=== PATIENT | female | born 1965 | race Hispanic/Latino ===

== ENCOUNTER 2017-08-11 08:34 | Emergency (ER) | payer OTHER ==
[~2017-08-11] VITALS: Ht 162.6 cm; Wt 90.7 kg
--- OUTSIDE RECORDS SUMMARY | 2017-08-11 08:37 | XMS REPORT | Clinical Summary ---
Author Author KRISH [facility] Address Unknown Phone Unavailable Care Team Providers Care Agricultural Research Technician Name Role Phone PCP Unavailable Allergies Active Allergy Reactions Severity Noted Date Comments Milk Containing Products Rash High 02/03/2016 Dairy products Current Medications Prescription Sig. Disp. Refills Start End Date Status Date pravastatin (PRAVACHOL) Take 20 mg by mouth Active 20 MG tablet nightly . amLODIPine (NORVASC) 5 MG Take 5 mg by mouth daily. Active tablet insulin NPH 100 unit/mL Inject 25 Units Active (3 mL) InPnIndications: subcutaneously every type 2 diabetes mellitus morning. insulin NPH 100 unit/mL Inject 30 Units Active (3 mL) InPnIndications: subcutaneously every type 2 diabetes mellitus evening. Active Problems Problem Noted Date KATHY (acute kidney injury) (HCC) 02/09/2016 Acute renal failure with other specified pathological lesion in kidney 02/07 ([facility]) Chest pain, unspecified 02/03/2016 Social History Tobacco Use Types Packs/Day Years Used Date Former Smoker Alcohol Use Drinks/Week oz/Week Comments No Sex Assigned at Date Recorded Not on file Last Filed Vital Signs Not on file Plan of Treatment Not on file Results Not on fileafter 08/10/2016
--- OUTSIDE RECORDS SUMMARY | 2017-08-11 08:53 | XMS REPORT | Clinical Summary ---
Author Author KRISH [facility] Address Unknown Phone Unavailable Care Team Providers Care Grease Maker Head Name Role Phone PCP Unavailable Allergies Active [...] other specified pathological lesion in kidney 02/07 ([facility]) Chest pain, unspecified 02/03/2016 Social History Tobacco Use Types Packs/Day Years Used Date Former Smoker Alcohol Use Drinks/Week oz/Week Comments No Sex Assigned at Date Recorded Not on file Last Filed Vital Signs Not on file Plan of Treatment Not on file Results Not on fileafter 08/10/2016
--- NOTE | 2017-08-11 09:41 | Diagnostic Imaging Report ---
EXAMINATION: CHEST 2 VIEWS INDICATION: \S\SOB, FEVER \[id number] \S\0910 \S.br\ COMPARISON: None FINDINGS: PA and lateral views TUBES and LINES: None. LUNGS: Limited by low lung volumes and body habitus. There is no evidence of pneumonia or pulmonary edema. PLEURA: No pleural effusion or pneumothorax. HEART AND MEDIASTINUM: The cardiomediastinal silhouette is unremarkable. BONES AND SOFT TISSUES: No acute osseous lesion. Soft tissues are unremarkable. UPPER ABDOMEN: No free air under the diaphragm. IMPRESSION: No acute thoracic abnormality. Signed by: Dr. Bernardo Logan MD on 08/11/2017 9:37 AM
[2017-08-11 10:04] LABS: BASOPHILS % 0.5 % (0.0-1.0); EOSINOPHILS % 0.5 % (0.0-6.0); HEMATOCRIT 41.4 % (34.2-44.1); HEMOGLOBIN 13.7 g/dL (12.0-16.0); LYMPHOCYTES # (AUTO) 1.2 (1.0-3.2); LYMPHOCYTES % 16.4 % (18.0-39.1); MEAN CORPUSCULAR HEMOGLOBIN 28.5 pg (28-32); MEAN CORPUSCULAR HGB CONC 33.1 g/dL (31-35); MEAN CORPUSCULAR VOLUME 86.1 fL (81-99); MONOCYTES # (AUTO) 0.9 (0.2-0.8); MONOCYTES % 11.5 % (4.4-11.3); NEUTROPHILS # (AUTO) 5.3 (2.1-6.9); NEUTROPHILS % 70.7 % (38.7-80.0); PLATELET COUNT 234 x10e3/uL (140-360); RED BLOOD COUNT 4.81 x10e6/uL (3.6-5.1); RED CELL DISTRIBUTION WIDTH 13.3 % (11.7-14.4)
[2017-08-11 10:19] LABS: INR 1.11; PROTHROMBIN TIME 13.5 seconds (11.9-14.5)
[2017-08-11 10:20] LABS: PARTIAL THROMBOPLASTIN TIME 34.3 seconds (23.8-35.5)
[2017-08-11 10:26] LABS: ALANINE AMINOTRANSFERASE 25 IU/L (0-55); ALBUMIN 3.9 g/dL (3.5-5.0); ALKALINE PHOSPHATASE 84 IU/L (40-150); ANION GAP 10.4 mmol/L (8-16); BLOOD UREA NITROGEN 9 mg/dL (7-26); BUN/CREATININE RATIO 13 (6-25); CALCIUM 9.1 mg/dL (8.4-10.2); CARBON DIOXIDE 28 mmol/L (22-29); CHLORIDE 102 mmol/L (98-107); CREATINE KINASE 31 IU/L (29-168); EST GLOMERULAR FILTRATION RATE > 60 ML/MIN (60-); GLUCOSE 136 mg/dL (74-118); POTASSIUM 3.4 mmol/L (3.5-5.1); SODIUM 137 mmol/L (136-145)
[2017-08-11 10:38] LABS: CLARITY,URINE CLEAR (CLEAR); COLOR,URINE YELLOW (YELLOW); LEUKOCYTE ESTERASE ,URINE NEGATIVE (NEGATIVE); NITRITE,URINE NEGATIVE (NEGATIVE); PROTEIN,URINE DIPSTICK TRACE (NEGATIVE)
[2017-08-11 10:39] LABS: BILIRUBIN,URINE NEGATIVE (NEGATIVE); KETONES,URINE NEGATIVE (NEGATIVE); URINE UROBILINOGEN 0.2 mg/dL (0.2 - 1)
[2017-08-11] MEDS ORDERED: IOPAMIDOL 370 MG/ML 200 ML INFUS..BTL INJ ONE (11:25)
[2017-08-11] MEDS ORDERED: SODIUM CHLORIDE 0.9% 50ML 50 ML ONE (11:25)
--- NOTE | 2017-08-11 12:24 | Diagnostic Imaging Report ---
EXAM: CT Chest WITH contrast 08/11/2017 10:53 AM INDICATION: \S\PE PROTOCOL \[id number] \S\1130 \S\N COMPARISON: Chest x-ray of the same date TECHNIQUE: Chest was scanned utilizing a multidetector helical scanner from the lung apex through the level of the adrenal glands without administration of IV contrast. Coronal and sagittal reformations were obtained. Pulmonary embolism protocol was performed. IV CONTRAST: 100 mL of Isovue-370 COMPLICATIONS: None RADIATION DOSE: Total DLP: 463.72 mGy*cm Estimated effective dose: (DLP x 0.014 x size factor) mSv CTDIvol has been reviewed. It is below the limits set by the Radiation Protocol Committee (RPC). FINDINGS: LINES/ TUBES: None. LUNGS AND AIRWAYS: No filling defects within pulmonary arteries up to the segmental levels. Mild posterior left base opacification (series 3, image 68). Airways are normal. PLEURA: The pleural spaces are clear. HEART AND MEDIASTINUM: The visualized thyroid gland is normal. No mediastinal, hilar or axillary lymphadenopathy. The heart is normal in size.. There is no pericardial effusion. UPPER ABDOMEN: Cholecystectomy. BONES: The visualized bony thorax is within normal limits. SOFT TISSUES: Unremarkable. IMPRESSION: No evidence of pulmonary embolism. Mild posterior left base opacification may represent developing pneumonia in the appropriate clinical setting. Signed by: Dr. Bernardo Logan MD on 08/11/2017 12:21 PM
[2017-08-11] MEDS ORDERED: CEFTRIAXONE SOD 1 GM VIAL IV ONE (12:45)
[2017-08-11 13:07] VITALS: BP 190/100
== END 2017-08-11 13:25 | disposition home or self-care (01) ==
LOC: ER 08:51
DX: R53.1 Weakness (principal); J15.9 Unspecified bacterial pneumonia; I10 Essential (primary) hypertension; E11.9 Type 2 diabetes mellitus without complications
CPT/HCPCS: 36415; 71046; 71260; 80053; 81001; 82550; 82553; 83880; 84484; 85025; 85379; 85610; 85730; 87400; 93005; 99284; J0696; Q9967

== ENCOUNTER 2019-12-21 22:35 | Emergency (ER) | payer OTHER ==
[~2019-12-21] VITALS: Ht 162.6 cm; Wt 90.7 kg
[2019-12-21] MEDS ORDERED: SODIUM CHLORIDE 0.9% 1000ML 1,000 ML IV STA (23:09)
[2019-12-21] MEDS ORDERED: ONDANSETRON HCL INJ 2MG/ML 2ML 2 MG/ML VIAL IV STA (23:10)
[2019-12-21] MEDS ORDERED: ACETAMINOPHEN 325 MG TAB PO ONE (23:15)
--- NOTE | 2019-12-21 23:18 | Emergency Department Note ---
History of Present Illnes History of Present Illness Chief Complaint: COVID PUI History of Present Illness This is a 54 year old female arrives to the ED requesting IV fluids. Patient states she was sent to the ER by her PCP for having Covid 19 symptoms causing dehydration. Patient states she wants IV fluids and admission. 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 Historian: Patient Arrival Mode: Car Radiation: Reports non-radiation Severity: mild Duration (how long): day(s) Timing of current episode: constant Chronicity: new Past Medical/Family History Physician Review I have reviewed the patient's past medical and family history. Any updates have been documented here. Past Medical History Recent Fever: Yes Clinical Suspicion of Infectio: Yes New/Unexplained Change in Ment: No Past Medical History: Hypertension, Diabetes, Hyperlipedemia Past Surgical History: Cholecysctectomy, Hysterectomy Other Surgery: PARTIAL HYSTERECTOMY Social History Physically hurt or threatened: No Other Last Tetanus: <5yrs Review of Systems Review of Systems Constitutional: Reports no symptoms, Reports fever, Reports malaise, Reports weakness EENTM: Reports no symptoms Cardiovascular: Reports no symptoms Respiratory: Reports as per HPI, Reports cough Gastrointestinal: Reports no symptoms Genitourinary: Reports no symptoms Musculoskeletal: Reports no symptoms Integumentary: Reports no symptoms Neurological: Reports no symptoms Psychological: Reports no symptoms Endocrine: Reports no symptoms Hematological/Lymphatic: Reports no symptoms Physical Exam Related Data Allergies: Uncoded Allergies: DAIRY (Allergy, Unknown, 08/11/17) Triage Vital Signs Vital Signs Date Time Temp Pulse Resp B/P (MAP) Pulse Ox O2 Delivery O2 Flow Rate FiO2 12/21/19 22:45 100.1 98 20 96/77 97 Room Air Physical Exam CONSTITUTIONAL Constitutional: Present well-developed, Present well-nourished HENT HENT: Present normocephalic, Present atraumatic, Present oropharynx clear/moist, Present nose normal HENT L/R: Present left ext ear normal, Present right ext ear normal EYES Eyes: Reports PERRL, Reports conjunctivae normal NECK Neck: Present ROM normal PULMONARY Pulmonary: Present effort normal, Present breath sounds normal CARDIOVASCULAR Cardiovascular: Present regular rhythm, Present heart sounds normal, Present capillary refill normal, Present normal rate GASTROINTESTINAL Abdominal: Present soft, Present nontender, Present bowel sounds normal GENITOURINARY Genitourinary: Present exam deferred SKIN Skin: Present warm, Present dry MUSCULOSKELETAL Musculoskeletal: Present ROM normal NEUROLOGICAL Neurological: Present alert, Present oriented x 3, Present no gross motor or sensory deficits PSYCHOLOGICAL Psychological: Present mood/affect normal, Present judgement normal Assessment & Plan Medical Decision Making MDM 54-year-old well-appearing female likely Covid positive given her symptoms arrives the ED requesting IV fluids. Patient was informed that there is no indication for IV fluids but she insisted. Patient given a liter, encouraged oral hydration. Patient discharged home on Zofran, Z-Rodo and outpatient follow- up. Assessment & Plan Final Impression: (1) COVID-19 Depart Disposition: HOME, SELF-CARE Last Vital Signs Date Time Temp Pulse Resp B/P (MAP) Pulse Ox O2 Delivery O2 Flow Rate FiO2 12/21/19 22:45 100.1 98 20 96/77 97 Room Air SONIA SMALL DO Dec 21, 2019 23:18
--- OUTSIDE RECORDS SUMMARY | 2019-12-22 00:12 | XMS REPORT | Clinical Summary ---
Author Author KRISH [facility] Address Unknown Phone Unavailable Care Team Providers Care Multimedia Engineer Name Role Phone PCP Unavailable Allergies Comments Active Allergy Reactions Severity Noted Date KATHY KATHY Amoxicillin 02/13/2016 KATHY KATHY Clarithromycin 02/13/2016 Dairy products Milk Containing Products Rash High 02/02 Medications End Date Status Medication Sig Dispensed Refills Start Date Active pravastatin (PRAVACHOL) Take 20 mg by 0 20 MG tablet mouth nightly . Active amLODIPine (NORVASC) 5 MG Take 5 mg by 0 tablet mouth daily. Active insulin NPH 100 unit/mL Inject 25 0 (3 mL) InPnIndications: Units type 2 diabetes mellitus subcutaneousl y every morning. Active insulin NPH 100 unit/mL Inject 30 0 (3 mL) InPnIndications: Units type 2 diabetes mellitus subcutaneousl y every evening. Active losartan-hydroCHLOROthiaz Take 1 tablet 0 06/13 gege (HYZAAR) 50-12.5 mg by mouth. 7 per tablet Active Problems Problem Noted Date Severe right groin pain 08/06/2018 Type 2 diabetes mellitus with complication, unspecifi ed whether group home 08/06/2018 insulin use Essential hypertension 08/06/2018 KATHY (acute kidney injury) 02/09/2016 Acute renal failure with other specified pathological lesion in kidney 02/08/2016 Chest pain, unspecified 02/03/2016 Social History Date Tobacco Use Types Packs/Day Years Used Former Smoker Alcohol Use Drinks/Week oz/Week Comments No Sex Assigned at Date Recorded Not on file Industry Job Start Date Occupation Not on file Not on file Not on file Travel End Travel History Travel Start No recent travel history available. Last Filed Vital Signs Not on file Plan of Treatment Not on file Results Not on fileafter 12/21/2018 Insurance Payer Benefit Subscriber ID Type Phone Address Plan / Group [employer] - [place] [employer] xxxxxxxxxxx HMO/POS HMO/POS OPEN ACCESS [employer] - [place] xxxxxxxxxxxx CARE MEDICAL RESOURCES CHOICE POS [phone] Advance Directives For more information, please contact: [address] [address] Date Inactivated Comments Code Status Date Activated 02/10/2016 5:03 PM Full Code 02/08/2016 8:55 PM This code status was determined by: Patient 02/03/2016 8:28 PM Full Code 02/03/2016 10:18 AM This code status was determined by: Patient
--- OUTSIDE RECORDS SUMMARY | 2019-12-22 00:13 | XMS REPORT | Continuity of Care Document ---
Author Author [facility] t Organization [facility] Address [facility] [place] [address] Phone Unavailable Care Team Providers Care Technician [employer] Name Role Phone ANGELICA RAINES PCP LUNA HARDING Attphys Unavailable Bill BEAN Attphys Unavailable Payers Payer Name Policy Type Policy Number Effective Date Expiration Date Karoline Cohen o [id number] 2011 00:00:00 [facility] Problems Condition Name Condition Details Condition Category Status Onset Date Resolution Date Last Treatment Date Treating Clinician Comments Source Severe right groin pain Severe right groin pain Disease Active 2018-08-06 00:00:00 [facility] Type 2 diabetes mellitus with complicati on, unspecified whether halfway insulin use Type 2 diabetes mellitus with complicati on, unspecified whether halfway insulin use Disease Active 2018-08-06 00:00:00 [facility] Essential hypertension Essential hypertension Disease Active 2018-08-06 00:00:00 [facility] KATHY (acute kidney injury) KATHY (acute kidney injury) Disease Ac tive 2016-02-09 00:00:00 [facility] Acute renal failure with other specified pathological lesion in kidney Acute renal failure with other specified pathological lesion in kidney Disease Active 2016-02-08 00:00:00 [facility] Chest pain, unspecified Chest pain, unspecified Disease Active 2016-02-03 00:00:00 [facility] Allergies, Adverse Reactions, Alerts Allergy Name Allergy Type Status Severity Reaction(s) Onset Date Inacti ve Date Treating Clinician Comments Source DAIRY Allergy to Substance Active 2017-08-11 00:00:00 [facility] Amoxicillin Propensity to adverse reactions Active 2015 00:00:00 [facility] Clarithromycin Propensity to adverse reactions Active 2 00:00:00 [facility] Milk Containing Products Drug Allergy Active Rash 2016-02-03 00:00:00 Dairy products [facility] Social History Social Habit Start Date Stop Date Quantity Comments Source Sex Assigned At [facility] Smoking Status Start Date Stop Date Source Former smoker 2018-08-06 00:00:00 2018-08-06 00:00:00 [facility] Medications Ordered Medication Name Filled Medication Name Start Date Stop Da te Current Medication? Ordering Clinician Indication Dosage Frequency Signature (SIG) Comments Components Source losartan-hydroCHLOROthiazide (HYZAAR) 50-12.5 mg per tablet 2016-06-27 00:00:00 Yes 1{tbl} Take 1 tablet by mouth. [facility] pravastatin (PRAVACHOL) 20 MG tablet 2016-02-08 20:49:07 Ye s 20mg QD Take 20 mg by mouth nightly . [facility] amLODIPine (NORVASC) 5 MG tablet 2016-02-03 08:40:46 Yes 5mg QD Take 5 mg by mouth daily. [facility] insulin NPH 100 unit/mL (3 mL) [facility] 2016-02-03 08:40:46 Yes type 2 diabetes mellitus 25U QD Inject 25 Units subcutaneously every mor jaylon. [facility] insulin NPH 100 unit/mL (3 mL) [facility] 2016-02-03 08:40:46 Yes type 2 diabetes mellitus 30U QD Inject 30 Units subcutaneously every myra jaylon. [facility] Procedures Procedure Date / Time Performed Performing Clinician [facility] e X-ray of chest, two views 2017-08-11 00:00:00 STELLA BEAN [facility] Computed tomography of chest with contrast 2017-08-11 00:00:00 H STELLA FARRELL [facility] Encounters Start Date/Time End Date/Time Encounter Type Admission Type Attendi ng Clinicians Care Facility Care Department Encounter ID Source 2017-08-11 08:51:00 2017-08-11 13:25:00 Departed Emergency Room ER STELLA BEAN [facility] [id number] [facility] Results Test Description Test Time Test Comments Results Result Comments Source CT, ABDOMEN 2018-08-06 16:00:00 FINAL REPORT TECHNIQUE: CT of the abdomen and pelvis WITHOUT intravenous contrast and WITHOUT oral contrast. Dose modulation, iterative reconstruction, and/or weight-based adjustm ent of the mA/kV was utilized to reduce the radiation dose to as low as reasonably achievable. INDICATION: RT groin pain, TVUS unable to see RT ovary. COMPARISON: Chest CT from 02/03/2016. Pelvic ultrasound from earlier today. FINDINGS: ABSENCE OF INTRAVENOUS CONTRAST DECREASES SENSITIVITY FOR DETECTION OF FOCAL LESIONS AND VASCULAR PATHOLOGY. LOWER THORAX: Bibasilar subsegmental atelectasis. HEPATOBILIARY: No focal hepatic lesions. Prior cholecystectomy. No biliary ductal dilatation.SPLEEN: No splenomegaly.PANCREAS: No focal masses or ductal dilatation. ADRENALS: No adrenal nodules.KIDNEYS/URETERS: No hydronephrosis, stones, or exophytic masses.PELVIC ORGANS/BLADDER: Prior supracervical hysterectomy. A right ovarian cyst measures 1.3 cm and is almost certainly benign. No follow-up imaging is necessary. The left ovary is not visualized. PERITONEUM/RETROPERITONEUM: No free air or fluid.LYMPH NODES: No lymphadenopathy.VESSELS: Unremarkable. GI TRACT: No distention or wall thickening. The apex is normal. BONES AND SOFT TISSUES: Moderate degenerative changes at L5-S1. IMPRESSION: 1.No definite explanation on this CT for the right groin pain. There has likely been a prior supracervical hysterectomy. The right ovary has a normal perimenopausal appearance. A right ovarian cyst measures 1.3 cm and is almost certainly benign. No follow-up imaging is necessary. 2.The left ovary is not visualized. 3.If the patient has not had a prior supracervical hysterectomy, the vaginal cuff is more bulky than normally expected. If the patient has not had a prior supracervical hysterectomy, direct visualization is recommended. Signed: Glenn Dan MDReport Verified Date/Time: 08/06/2018 16:00:17 Reading Location: [facility] Diagnostic Imaging Reading Room - [place] [address] U/S, PELVIS, WITH ENDOVAG AND DOPPLER 2018-08-06 14:49:00 Re ason for exam:->RT pelvic pain FINAL REPORT Ultr asound of the pelvis and endovaginal ultrasound. Duplex Doppler complete. HISTORY: Right pelvic pain. Comparison study: None available. TECHNIQUE: Grayscale, color-flow, duplex Doppler and spectral analysis of the pelvis was performed. FINDINGS: Both a transabdominal and endovaginal pelvic ultrasound were performed to better visualize the anatomy. The uterus has been resected. The cervix remains and some nabothian cysts are seen. Neither the right nor the left ovary could be visualized as they are obscured by bowel gas. An attempt at a Doppler was made. IMPRESSION:1. Status post is recommended.2. Ovaries not seen. If further assessment is needed, MRI is recommended. Signed: Elijah Colon MDReport Verified Date/Time: 08/06/2018 14:49:35 Reading Location: [address] Ultrasound Reading Room ALYSIS W/ REFLEX URINE CULTURE 2018-08-06 13:30:00 Test Item COLOR (BEAKER) (test code = 470) Light Yellow CLARITY (BEAKER) (test code = 469) Clear SPECIFIC GRAVITY UA (BEAKER) (test code = 468) 1.011 1.001-1 .035 PH UA (BEAKER) (test code = 467) 6.5 5.0-8.0 PROTEIN UA (BEAKER) (test code = 464) Negative Negative GLUCOSE UA (BEAKER) (test code = 365) Negative Negative KETONES UA (BEAKER) (test code = 371) Negative Negative BILIRUBIN UA (BEAKER) (test code = 462) Negative Negative BLOOD UA (BEAKER) (test code = 461) Negative Negative NITRITE UA (BEAKER) (test code = 465) Negative Negative LEUKOCYTE ESTERASE UA (BEAKER) (test code = 466) Negative Negat josé miguel UROBILINOGEN UA (BEAKER) (test code = 463) 0.2 mg/dL 0.2-1.0 RBC UA (BEAKER) (test code = 519) 0 /HPF WBC UA (BEAKER) (test code = 520) < /HPF MUCUS (BEAKER) (test code = 1574) Rare SQUAMOUS EPITHELIAL (BEAKER) (test code = 516) < /HPF SOURCE(BEAKER) (test code = 2795) B-Type Natriuretic Geqfsya8233-72-44 10:48:00* Test Item Value Reference Range Interpretation Comments B-Type Natriuretic Peptide (test code = 26978-1) 23.6 0-100 [facility] [id number] 10:40:00* Test Item Value Reference Range Interpretation Comments Urine WBC (test code = 5821-4) NONE 0-5 [facility] [id number] 10:40:00* Test Item Value Reference Range Interpretation Comments Urine RBC (test code = 19450-5) NONE 0-5 [facility] Okoovnox2501-14-31 10:40:00* Test Item Value Reference Range Interpretation Comments Urine Bacteria (test code = 24333-7) NONE NONE [facility] Epithelial Fxdla1503-48-25 10:40:00 * Test Item Value Reference Range Interpretation Comments Urine Epithelial Cells (test code = 85207-7) NONE NONE [facility] Dydms7194-30-74 10:39:00* Test Item Value Reference Range Interpretation Comments Urine Color (test code = 5778-6) YELLOW YELLOW [facility] Qcwscdv8625-32-22 10:39:00* Test Item Value Reference Range Interpretation Comments Urine Clarity (test code = 74580-0) CLEAR CLEAR [facility] Specific Grnehcp6417-42-97 10:39:00 * Test Item Value Reference Range Interpretation Comments Urine Specific [place] (test code = 5811-5) 1.015 1.010-1.02 5 [facility] [id number] 10:39:00* Test Item Value Reference Range Interpretation Comments Urine pH (test code = 75462-2) 5 5-7 [facility] Leukocyte Fqcujvtu4504-44-00 10:39:00* Test Item Value Reference Range Interpretation Comments Urine Leukocyte Esterase (test code = 5799-2) NEGATIVE NEGATIVE [facility] Lqxyyau8244-68-20 10:39:00* Test Item Value Reference Range Interpretation Comments Urine Nitrite (test code = 53388-2) NEGATIVE NEGATIVE [facility] Ucyytgl8323-89-30 10:39:00* Test Item Value Reference Range Interpretation Comments Urine Protein (test code = 5804-0) TRACE NEGATIVE H [facility] Glucose (UA)2017-08-11 10:39:00* Test Item Value Reference Range Interpretation Comments Urine Glucose (UA) (test code = 2349-9) NEGATIVE NEGATIVE [facility] Afjsdnz7497-47-80 10:39:00* Test Item Value Reference Range Interpretation Comments Urine Ketones (test code = 14348-7) NEGATIVE NEGATIVE [facility] Jitjvcauvoax6511-10-99 10:39:00* Test Item Value Reference Range Interpretation Comments Urine Urobilinogen (test code = 71837-6) 0.2 0.2-1 [facility] Flczjeyoo7474-58-49 10:39:00* Test Item Value Reference Range Interpretation Comments Urine Bilirubin (test code = 1978-6) NEGATIVE NEGATIVE [facility] Oqlvj6292-04-88 10:39:00* Test Item Value Reference Range Interpretation Comments Urine Blood (test code = 89427-2) NEGATIVE NEGATIVE [facility] NorthwestCreatine Kinase [id number] 10:35:00* Test Item Value Reference Range Interpretation Comments Creatine Kinase MB (test code = 08603-8) 0.20 0-5.0 [facility] NorthwestTroponin [id number] 10:35:00* Test Item Value Reference Range Interpretation Comments Troponin I (test code = NAS8571) -0.001 0-0.300 [facility] Resourcesodium Vtnth3733-22-87 10:26:00* Test Item Value Reference Range Interpretation Comments Sodium Level (test code = 2951-2) 137 136-145 [facility] NorthwestPotassium Fetbn2725-53-69 10:26:00* Test Item Value Reference Range Interpretation Comments Potassium Level (test code = 2823-3) 3.4 3.5-5.1 L [facility] NorthwestChloride Xrexg2532-16-22 10:26:00* Test Item Value Reference Range Interpretation Comments Chloride Level (test code = 2075-0) 102 98-107 [facility] NorthwestCarbon Dioxide Ksjsf0285-11-36 10:26:00* Test Item Value Reference Range Interpretation Comments Carbon Dioxide Level (test code = 2028-9) 28 22-29 [facility] NorthwestAnion Ulo2378-78-04 10:26:00* Test Item Value Reference Range Interpretation Comments Anion Gap (test code = 65091-0) 10.4 8-16 [facility] NorthwestBlood Urea Gkdmoqgw0371-66-24 10:26:00* Test Item Value Reference Range Interpretation Comments Blood Urea Nitrogen (test code = 3094-0) 9 7-26 [facility] NorthwestCreatinine2018-04-01 10:26:00* Test Item Value Reference Range Interpretation Comments Creatinine (test code = 2160-0) 0.70 0.57-1.11 [facility] NorthwestBUN/Creatinine Aibbh3807-81-23 10:26:00* Test Item Value Reference Range Interpretation Comments BUN/Creatinine Ratio (test code = 3097-3) 13 6-25 [facility] NorthwestEstimat Glomerular Filtration Rate 2017-08-11 10:26:00* Test Item Value Reference Range Interpretation Comments Estimat Glomerular Filtration Rate (test code = 63772-4) 60- >60 Ranges were taken from the National Kidney Disease Education Program and the [facility] [employer] literature.Reference ranges:60 or greater: Gwzgjb59-98 ( for 3 consecutive months): Chronic kidney disease 15 or less: Kidney failureCorpus Christi Medical Center NorthwestGlucose Jkrir9129-67-46 10:26:00* Test Item Value Reference Range Interpretation Comments Glucose Level (test code = VNK3730) 136 74-118 H [facility] NorthwestCalcium Ikpvm0750-45-31 10:26:00* Test Item Value Reference Range Interpretation Comments Calcium Level (test code = 15302-7) 9.1 8.4-10.2 [facility] NorthwestTotal Jogpmfkqa3726-99-83 10:26:00* Test Item Value Reference Range Interpretation Comments Total Bilirubin (test code = 1975-2) 0.6 0.2-1.2 [facility] NorthwestAspartate Amino Transf (AST/SGOT) 2017-08-11 10:26:00* Test Item Value Reference Range Interpretation Comments Aspartate Amino Transf (AST/SGOT) (test code = Aspartate Amino Transf (AST/SGOT)) 18 5-34 [facility] NorthwestAlanine Aminotransferase (ALT/SGPT) 2017-08-11 10:26:00* Test Item Value Reference Range Interpretation Comments Alanine Aminotransferase (ALT/SGPT) (test code = 1742-6) 25 0-55 [facility] Netnpht9832-45-64 10:26:00* Test Item Value Reference Range Interpretation Comments Total Protein (test code = 2885-2) 7.7 6.5-8.1 [facility] NorthwestAlbumin2018-04-01 10:26:00* Test Item Value Reference Range Interpretation Comments Albumin (test code = 1751-7) 3.9 3.5-5.0 [facility] NorthwestGlobulin2018-04-01 10:26:00* Test Item Value Reference Range Interpretation Comments Globulin (test code = 55659-0) 3.8 2.3-3.5 H [facility] NorthwestAlbumin/Globulin Liwmt9252-97-95 10:26:00 * Test Item Value Reference Range Interpretation Comments Albumin/Globulin Ratio (test code = 1759-0) 1.0 0.8-2.0 [facility] NorthwestAlkaline Iqupzzogwhh5561-24-41 10:26:00* Test Item Value Reference Range Interpretation Comments Alkaline Phosphatase (test code = 6768-6) 84 40-150 [facility] NorthwestCreatine Cibekk9411-16-38 10:26:00* Test Item Value Reference Range Interpretation Comments Creatine Kinase (test code = 2157-6) 31 29-168 [facility] NorthwestInfluenza Virus Types A,B Antigen 2017-08-11 10:25:00* Test Item Value Reference Range Interpretation Comments Influenza Virus Types A,B Antigen (test code = 72308-7) NEGATIVE NEGATIVE [facility] NorthwestD-Dimer Quantitative (PE/DVT)2017-08-11 10:24:00* Test Item Value Reference Range Interpretation Comments D-Dimer Quantitative (PE/DVT) (test code = 33730-7) 0.67 0. 00-0.45 H As with all in vitro diagnostic tests, the test results should be interpreted by the physician in conjunction with clinical findings and other test results.Test results are reported in NEW D-dimer units(ug/mLFEU).[facility] NorthwestProthrombin Bssg0014-14-61 10:20:00* Test Item Value Reference Range Interpretation Comments Prothrombin Time (test code = 5902-2) 13.5 11.9-14.5 [facility] NorthwestProthromb Time International Ratio 2017-08-11 10:20:00* Test Item Value Reference Range Interpretation Comments Prothromb Time International Ratio (test code = 6301-6) 1.11 Oral Anticoagulant Therapy INR Values:1. Low Intensity Therapy 1.5 - 2.02 . Moderate Intensity Therapy 2.0 - 3.03. High Intensity Therapy(1) 2.5 - 3. 54. High Intensity Therapy(2) 3.0 - 4.05. Panic Value INR > 5.0 [facility] NorthwestActivated Partial Thromboplast Time 2017-08-11 10:20:00* Test Item Value Reference Range Interpretation Comments Activated Partial Thromboplast Time (test code = 72487-1) 34.3 23.8-35.5 [facility] NorthwestWhite Blood Jwmzz6224-73-30 10:08:00* Test Item Value Reference Range Interpretation Comments White Blood Count (test code = 6690-2) 7.50 4.8-10.8 [facility] NorthwestRed Blood Ybjmn1964-08-87 10:08:00* Test Item Value Reference Range Interpretation Comments Red Blood Count (test code = 789-8) 4.81 3.6-5.1 [facility] NorthwestHemoglobin2018-04-01 10:08:00* Test Item Value Reference Range Interpretation Comments Hemoglobin (test code = 82506-4) 13.7 12.0-16.0 [facility] NorthwestHematocrit2018-04-01 10:08:00* Test Item Value Reference Range Interpretation Comments Hematocrit (test code = 4544-3) 41.4 34.2-44.1 [facility] NorthwestMean Corpuscular Msftga7236-81-92 10:08:00* Test Item Value Reference Range Interpretation Comments Mean Corpuscular Volume (test code = 787-2) 86.1 81-99 [facility] NorthwestMean Corpuscular Njodruqnkr1203-50-04 10:08:00* Test Item Value Reference Range Interpretation Comments Mean Corpuscular Hemoglobin (test code = 785-6) 28.5 28-32 [facility] NorthwestMean Corpuscular Hemoglobin Concent 2017-08-11 10:08:00* Test Item Value Reference Range Interpretation Comments Mean Corpuscular Hemoglobin Concent (test code = 786-4) 33.1 31-35 [facility] NorthwestRed Cell Distribution Xawsa4632-62-03 10:08:00* Test Item Value Reference Range Interpretation Comments Red Cell Distribution Width (test code = 94010-7) 13.3 11.7 -14.4 [facility] NorthwestPlatelet Fktmz3991-23-67 10:08:00* Test Item Value Reference Range Interpretation Comments Platelet Count (test code = 777-3) 234 140-360 [facility] NorthwestNeutrophils (%) (Auto)2017-08-11 10:08:00 * Test Item Value Reference Range Interpretation Comments Neutrophils (%) (Auto) (test code = 96170-6) 70.7 38.7-80.0 [facility] NorthwestLymphocytes (%) (Auto)2017-08-11 10:08:00 * Test Item Value Reference Range Interpretation Comments Lymphocytes (%) (Auto) (test code = 736-9) 16.4 18.0-39.1 L [facility] NorthwestMonocytes (%) (Auto)2017-08-11 10:08:00* Test Item Value Reference Range Interpretation Comments Monocytes (%) (Auto) (test code = 5905-5) 11.5 4.4-11.3 H [facility] NorthwestEosinophils (%) (Auto)2017-08-11 10:08:00 * Test Item Value Reference Range Interpretation Comments Eosinophils (%) (Auto) (test code = 713-8) 0.5 0.0-6.0 [facility] NorthwestBasophils (%) (Auto)2017-08-11 10:08:00* Test Item Value Reference Range Interpretation Comments Basophils (%) (Auto) (test code = 706-2) 0.5 0.0-1.0 [facility] NorthwestIM GRANULOCYTES %2017-08-11 10:08:00* Test Item Value Reference Range Interpretation Comments IM GRANULOCYTES % (test code = IM GRANULOCYTES %) 0.4 0.0- 1.0 [facility] NorthwestNeutrophils # (Auto)2017-08-11 10:08:00* Test Item Value Reference Range Interpretation Comments Neutrophils # (Auto) (test code = 751-8) 5.3 2.1-6.9 [facility] NorthwestLymphocytes # (Auto)2017-08-11 10:08:00* Test Item Value Reference Range Interpretation Comments Lymphocytes # (Auto) (test code = 28896-4) 1.2 1.0-3.2 [facility] NorthwestMonocytes # (Auto)2017-08-11 10:08:00* Test Item Value Reference Range Interpretation Comments Monocytes # (Auto) (test code = 742-7) 0.9 0.2-0.8 H [facility] NorthwestEosinophils # (Auto)2017-08-11 10:08:00* Test Item Value Reference Range Interpretation Comments Eosinophils # (Auto) (test code = 711-2) 0.0 0.0-0.4 [facility] NorthwestBasophils # (Auto)2017-08-11 10:08:00* Test Item Value Reference Range Interpretation Comments Basophils # (Auto) (test code = 704-7) 0.0 0.0-0.1 [facility] NorthwestAbsolute Immature Granulocyte (auto 2017-08-11 10:08:00* Test Item Value Reference Range Interpretation Comments Absolute Immature Granulocyte (auto (carin t code = Absolute Immature Granulocyte (auto) 0.03 0-0.1 [facility] NorthwestCT [facility]ST W [facility] [address] [place] [address] Patient Name: DAVID SEPULVEDA MR #: [id number] : 1965 Age/Sex: 52/F Req #: [id number] Adm Physician: Ordered by: STELLA BEAN MD Report #: [id number] Location: ER Room/Bed: Procedure: [id number] CT/CT CHEST W Exam Date: 8 Exam Time: 1130 REPORT STATUS: Signed EXAM : CT Chest WITH contrast 08/11/2017 10:53 AM INDICATION: COM PARISON: Chest x-ray of the same date TECHNIQUE: Chest was scanned utiliz ing a multidetector helical scanner from the lung apex through the level of th e adrenal glands without administration of IV contrast. Coronal and sagittal r eformations were obtained. Pulmonary embolism protocol was performed. I V CONTRAST: 100 mL of Isovue-370 COMPLICATIONS: None RADIATION DOSE: Total DLP: 463.72 mGy*cm Estimated effective dose: (DLP x 0.014 x size factor) mSv CTDIvol has been reviewed. It is below the limits set by the Radiation Protocol Committee (RPC). FINDINGS: LINES/ TUBES: Non e. LUNGS AND AIRWAYS: No filling defects within pulmonary arteries up to th e segmental levels. Mild posterior left base opacification (series 3, image 68 ). Airways are normal. PLEURA: The pleural spaces are clear. HEART AND MEDIASTINUM: The visualized thyroid gland is normal. No mediastinal, ernesto r or axillary lymphadenopathy. The heart is normal in size.. There is no maru cardial effusion. UPPER ABDOMEN: Cholecystectomy. BONES: The visu alized bony thorax is within normal limits. SOFT TISSUES: Unremarkable. IMPRESSION: No evidence of pulmonary embolism. Mild posterior left base o pacification may represent developing pneumonia in the appropriate clinical se tting. Signed by: Dr. Bernardo Logan MD on 08/11/2017 12:21 PM Dict ated By: BERNARDO LOGAN MD 1221 COPY TO: STELLA BEAN MD CHEST 2 VIEWS [place] [address] Patient Name: DAVID SEPULVEDA MR #: [id number] : 1965 Age/Sex: 52/F Req #: [id number] Adm Physician: Ordered by: STELLA BEAN MD Report #: [id number] Location: ER Room/Bed: Procedure: [id number] DX/CHEST 2 VIEWS Exam Date: 05/30 Exam Time: 909 REPORT STATUS: Signed E XAMINATION: CHEST 2 VIEWS INDICATION: COMPARISON: None FINDINGS: PA and lateral views TUBES and LINES: None. LUNGS: Limited by low lung volumes and body habitus. There is no evidence of pneumonia or pulmonary edema. PLEURA: No pleural effusion or pneumot horax. HEART AND MEDIASTINUM: The cardiomediastinal silhouette is unremark able. BONES AND SOFT TISSUES: No acute osseous lesion. Soft tissues a re unremarkable. UPPER ABDOMEN: No free air under the diaphragm. IMPRESSION: No acute thoracic abnormality. Signed by: Dr. Bernardo garcia MD on 08/11/2017 9:37 AM Dictated By: BERNARDO LOGAN MD 6 Transcribed By: JANI on 936 COPY TO: STELLA BEAN MD
[2019-12-22 01:24] VITALS: BP 101/63
== END 2019-12-22 01:11 | disposition home or self-care (01) ==
LOC: ER 23:05
DX: U07.1 COVID-19 (principal); R50.9 Fever, unspecified; R05 Cough; R11.2 Nausea with vomiting, unspecified; I10 Essential (primary) hypertension; E11.9 Type 2 diabetes mellitus without complications; E78.5 Hyperlipidemia, unspecified
CPT/HCPCS: 96374; 99284; J2405; J7030